=== PATIENT | female | born 1970 | race Caucasian/White ===

== ENCOUNTER 2021-07-27 05:46 | Day surgery (SDC) | payer BC ==
[2021-07-23 10:08] VITALS: BMI 25.7
--- NOTE | 2021-07-26 07:27 | P.HPOB ---
History of Present Illness H&P Date: 07/26/21 Chief Complaint: dysfunctional uterine bleeding This patient is a pleasant [id number] 3 para 2 female who presented to my office with complaints of heavy bleeding for over a month. Patient had an ultrasound performed which showed thickened endometrium with possible cysts/polyps. Patient now presents for hysteroscopy D&C for further evaluation and treatment. Review of Systems Genitourinary: Reports abnormal vaginal bleeding Menstruation: Reports as per HPI Past Medical History Past Medical History: No Reported History Additional Past Medical History / Comment(s): IRREGULAR BLEEDING , History of Any Multi-Drug Resistant Organisms: None Reported Additional Past Surgical History / Comment(s): ORAL SURGERY,GUMS Past Anesthesia/Blood Transfusion Reactions: No Reported Reaction Past Psychological History: No Psychological Hx Reported Smoking Status: Never smoker Past Alcohol Use History: None Reported Past Drug Use History: None Reported - Past Family History Mother Family Medical History: No Reported History Medications and Allergies Home Medications Medication Instructions Recorded Confirmed Type No Known Home Medications 07/23/21 07/23/21 History Allergies Allergy/AdvReac Type Severity Reaction Status Date / Time No Known Allergies Allergy Verified 07/23/21 09:45 Exam - OBG Physical Exam Abdomen: bowel sounds normal, no diffuse tenderness, no bruit present, no guarding noted, no hepatomegaly, no splenomegaly, no mass Vulva: both: normal Vagina: normal moisture, no discharge Cervix: no lesion, no discharge Uterus: normal size, normal contour Adnexa: both: normal Results ultrasound shows a normal size uterus however the endometrium is thickened with questionable polyps or and/or cyst. Assessment and Plan Assessment: this is a pleasant 50-year-old 3 para 2 female with dysfunctional uterine bleeding and abnormal endometrial thickening on ultrasound. Plan is hysteroscopy and D&C. Patient does understand the surgery and risks and risks of infection, bleeding, possible uterine perforation. All the patient's questions are answered and a written consent is obtained. (1) Dysfunctional uterine bleeding Status: Acute Code(s): N93.8 - OTHER SPECIFIED ABNORMAL UTERINE AND VAGINAL BLEEDING SNOMED Code(s): 59216874317488
[~2021-07-27 05:46] MED LIST: DEXAMETHASONE SOD PHOSPHATE 4 MG/ML 1 ML VIAL IV ONE; LACTATED RINGERS 1,000 ML IV SCH; LIDOCAINE 1% (10MG/ML) FOR IV START INTRADERMA PRN; ONDANSETRON 4 MG/2 ML VIAL IVP ONE; Pre Op ABX Message 1 EACH MISC MISCELLANE ONE; SCOPOLAMINE 1.5MG/72HR PATCH TRANSDERM ONE
[2021-07-27] MEDS ORDERED: LACTATED RINGERS 1,000 ML IV ONE ×2 (06:10)
[2021-07-27] MEDS ORDERED: KETOROLAC 15 MG/ML 1 ML VIAL ONE (06:52)
[2021-07-27] MEDS ORDERED: PROPOFOL 10 MG/ML 20 ML VIAL IV ONE (06:52)
[2021-07-27] MEDS ORDERED: MIDAZOLAM 2 MG/2 ML VIAL ONE (06:52)
[2021-07-27] MEDS ORDERED: fentaNYL (PF) 50 MCG/ML 2 ML AMP ONE (06:52)
[2021-07-27] MEDS ORDERED: HYDROmorphone 0.5 MG/0.5 ML SYRINGE IVP PRN (07:00)
--- NOTE | 2021-07-27 07:26 | P.OP ---
Date of Procedure: 07/27/21 Preoperative Diagnosis: Dysfunctional uterine bleeding Postoperative Diagnosis: Same Procedure(s) Performed: #1: Hysteroscopy. #2: Dilation and curettage Anesthesia: MAC Surgeon: Valeriano Canales Estimated Blood Loss (ml): 5 Urine output (ml): 50 Pathology: other (Uterine curettings) Condition: stable Disposition: PACU Indications for Procedure: Please see dictated H&P for intimate details of this patient's admission. Brief summary this is a pleasant 50-year-old multipara her's patient who presented with complaints of dysfunctional uterine bleeding. Transvaginal ultrasound showed some endometrial thickening and therefore she presents for hysteroscopy D&C for further evaluation. She does understand this procedure and risks and risks of infection, bleeding, possible uterine perforation. All the patient's questions are answered written consent is obtained. Operative Findings: This patient normal appearing endometrial cavity Description of Procedure: This patient is taken to the operating room where she is laid in supine position. She subsequent undergoes general anesthesia without incident. With an adequate level of anesthesia she has a vaginal perineal prep and drape. Examination under anesthesia shows a mid position uterus of normal size. Weighted speculum was placed in posterior vagina. Bladder is drained for 50 mL of clear urine. The Allis clamp was then placed on the anterior lip of the cervix. Uterus is gently sounded to 8.5 cm. This done serial dilation is done of the endocervix to allow the hysteroscope easily and the uterine cavity. Using saline solution hysteroscopy is performed. The endometrial cavity appears normal. With this done the hysteroscope was removed. More dilation is done of the endocervix to allow a curette easily and the uterine cavity a gentle but thorough 4 quadrant curettage is then done. I also placed the polyp forceps and again no further tissue was noted. This completed the procedure is ended. The Allis clamp and weighted speculum removed. All counts are correct 3. No complications. Patient is taken to the recovery room in satisfactory condition.
[2021-07-27 07:35] VITALS: TEMP 97
[2021-07-27 08:14] VITALS: RESP 16
[2021-07-27 08:37] VITALS: BP 103/69; PULSE 67
== END 2021-07-27 08:50 | disposition home or self-care (01) ==
LOC: OR 05:46
PROVIDERS: ATTEND Obstetrics & Gynecology
DX: N93.8 Other specified abnormal uterine and vaginal bleeding (principal); R93.89 Abnormal findings on diagnostic imaging of other specified body structures
CPT/HCPCS: 81025; 88305; 58558; J2250; J1100; J2405; J3010; J1885; J2704; J1790

== ENCOUNTER 2022-04-14 08:24 | Day surgery (SDC) | payer BC ==
[2022-04-12 17:41] VITALS: BMI 27.4
[~2022-04-14 08:24] MED LIST changes: -DEXAMETHASONE SOD PHOSPHATE 4 MG/ML 1 ML VIAL IV ONE; -ONDANSETRON 4 MG/2 ML VIAL IVP ONE; +ONDANSETRON 4 MG/2 ML VIAL IVP PRN; -Pre Op ABX Message 1 EACH MISC MISCELLANE ONE; -SCOPOLAMINE 1.5MG/72HR PATCH TRANSDERM ONE
[2022-04-14 09:10] VITALS: TEMP 97.8
[2022-04-14] MEDS ORDERED: LIDOCAINE 2% INJ 20 MG/ML (2 ML VIAL) ONE (09:55)
[2022-04-14] MEDS ORDERED: PROPOFOL 10 MG/ML 20 ML VIAL IV ONE (09:55)
--- NOTE | 2022-04-14 09:57 | P.GSHP ---
History of Present Illness H&P Date: 04/14/22 Chief Complaint: Screening colonoscopy This a 51-year-old female presents today for screening colonoscopy. Patient denies any significant GI complaints. Past Medical History Past Medical History: No Reported History Additional Past Medical History / Comment(s): IRREGULAR BLEEDING , History of Any Multi-Drug Resistant Organisms: None Reported Additional Past Surgical History / Comment(s): ORAL SURGERY,GUMS D & C, Past Anesthesia/Blood Transfusion Reactions: No Reported Reaction Smoking Status: Never smoker - Past Family History Mother Family Medical History: No Reported History Sister(s) Family Medical History: Cancer Medications and Allergies Home Medications Medication Instructions Recorded Confirmed Type No Known Home Medications 04/12/22 04/14/22 History Allergies Allergy/AdvReac Type Severity Reaction Status Date / Time No Known Allergies Allergy Verified 04/14/22 09:10 Surgical - Exam Vital Signs Temp Pulse Resp BP Pulse Ox 97.8 F 90 16 116/65 98 04/14/22 09:09 04/14/22 09:09 04/14/22 09:09 04/14/22 09:09 04/14/22 09:09 - General well developed, well nourished, no distress - Eyes PERRL - ENT normal pinna - Neck no masses - Respiratory normal expansion - Cardiovascular Rhythm: regular - Abdomen Abdomen: soft, non tender Assessment and Plan Assessment: We'll perform screening colonoscopy
--- NOTE | 2022-04-14 10:09 | P.OP ---
Date of Procedure: 04/14/22 Preoperative Diagnosis: Screening colonoscopy Postoperative Diagnosis: External hemorrhoids the Normal colon Procedure(s) Performed: Colonoscopy Anesthesia: MAC Surgeon: Simon Rojas Pathology: none sent Condition: stable Disposition: PACU Description of Procedure: The patient's placed on the endoscopy table in the lateral position. She received IV sedation. Digital rectal exam was performed. This revealed external hemorrhoids. The flexible colonoscope was then placed patient anus and passed throughout the entire colon. The ileocecal valve was visualized. The cecum, ascending and transverse colon appeared normal. The descending and sigmoid colonappeared normal. Scope withdrawn for patient.
[2022-04-14 10:26] VITALS: BP 112/57; PULSE 75; RESP 18
== END 2022-04-14 10:40 | disposition home or self-care (01) ==
LOC: ORWHC2ENDO 08:24
PROVIDERS: ATTEND Surgery
DX: Z12.11 Encounter for screening for malignant neoplasm of colon (principal); K64.4 Residual hemorrhoidal skin tags; Z80.9 Family history of malignant neoplasm, unspecified; Z98.890 Other specified postprocedural states
CPT/HCPCS: 81025; J2704; J2001; G0121; 45378